=== PATIENT | female | born 1945 | race Caucasian/White ===

== ENCOUNTER → 2021-08-29 10:06 | Outpatient (BNVA) | payer MEDICARE, SELFPAY | PROVIDERS: Referring Provider Student in an Organized Health Care Education/Training Program; Visit Provider Anesthesiology Pain Medicine | DX: G89.29 Other chronic pain (principal); M54.2 Cervicalgia; M47.816 Spondylosis without myelopathy or radiculopathy, lumbar region; M51.16 Intervertebral disc disorders with radiculopathy, lumbar region; M76.01 Gluteal tendinitis, right hip; M76.02 Gluteal tendinitis, left hip; M16.12 Unilateral primary osteoarthritis, left hip; Z87.891 Personal history of nicotine dependence | CPT/HCPCS: 99205 ==

== ENCOUNTER → 2022-03-04 08:20 | Outpatient (BNVA) | payer MEDICARE, MEDICAID, SELFPAY | PROVIDERS: Referring Provider Student in an Organized Health Care Education/Training Program; Visit Provider Orthopaedic Surgery | DX: M67.911 Unspecified disorder of synovium and tendon, right shoulder (principal); Z87.891 Personal history of nicotine dependence | CPT/HCPCS: 20610; 73030; 99203; J0702; J3490 ==

== ENCOUNTER → 2023-04-09 09:12 | Outpatient (BNVA) | payer MEDICARE, MEDICAID, SELFPAY | PROVIDERS: PCP Nurse Practitioner Family; Visit Provider Internal Medicine Cardiovascular Disease | DX: I25.10 Atherosclerotic heart disease of native coronary artery without angina pectoris (principal); I11.0 Hypertensive heart disease with heart failure; I50.9 Heart failure, unspecified; E78.5 Hyperlipidemia, unspecified; Z87.891 Personal history of nicotine dependence | CPT/HCPCS: 36415; 80053; 85025; 93005; 99204 ==

== ENCOUNTER → 2023-11-10 12:12 | Outpatient (BNVA) | payer MEDICARE, MEDICAID, SELFPAY | PROVIDERS: PCP Nurse Practitioner Family; Visit Provider Podiatrist Foot & Ankle Surgery | DX: Q82.8 Other specified congenital malformations of skin (principal) | CPT/HCPCS: 17110; 99203 ==

== ENCOUNTER → 2023-12-22 13:17 | Outpatient (BNVA) | payer MEDICARE, MEDICAID, SELFPAY | PROVIDERS: PCP Nurse Practitioner Family; Visit Provider Podiatrist Foot & Ankle Surgery | DX: Q82.8 Other specified congenital malformations of skin (principal); M76.71 Peroneal tendinitis, right leg | CPT/HCPCS: 99213 ==

== ENCOUNTER → 2024-02-16 09:56 | Outpatient (BNVA) | payer MEDICARE, MEDICAID, SELFPAY | PROVIDERS: PCP Nurse Practitioner Family; Visit Provider Nurse Practitioner Family | DX: I11.0 Hypertensive heart disease with heart failure (principal); I50.9 Heart failure, unspecified; I25.10 Atherosclerotic heart disease of native coronary artery without angina pectoris; Z87.891 Personal history of nicotine dependence | CPT/HCPCS: 99214 ==

== ENCOUNTER → 2024-08-22 12:10 | Outpatient (BNVA) | payer MEDICARE, MEDICAID, SELFPAY | PROVIDERS: PCP Nurse Practitioner Family; Visit Provider Internal Medicine Cardiovascular Disease | DX: R07.9 Chest pain, unspecified (principal); E78.5 Hyperlipidemia, unspecified | CPT/HCPCS: 36415; 80061; 80076; 93005 ==

== ENCOUNTER 2024-09-13 07:30 | Outpatient (CLI) | payer MEDICARE, MEDICAID, SELFPAY ==
--- NOTE | 2024-09-13 07:45 | USCV_ITS ---
PARKER ALMEIDA Age: 79 Gender: F : 1945 Exam Date: 09/13/2024 07:40 Ordering Phys: Kerry Marrero MD ([email or web address]) Technologist: R [place] [facility] [place]: [place]/ pain Risk Factors: Previous Vascular Surgery: RIGHT LEFT BP: 101.0 / 56.00 BP: 101.0/ 54.00 0 0 Waveform Velocity (cm/s) Velocity (cm/s) Waveform Monophasic 48.5 Iliac Prox 77.2 Biphasic Monophasic 70.9 Iliac Mid 69.1 Triphasic Monophasic 57.7 Iliac Distal 87.4 Triphasic Monophasic 183.0 MANAGER INVESTIGATIONS 209.0 Triphasic Monophasic 155.0 SFA Prox 134.0 Triphasic N/A SFA Mid 56.0 Biphasic N/A SFA Dist 63.0 Triphasic Monophasic 50.0 POP 68.0 Triphasic Monophasic 29.0 MEMBERSHIP COORDINATOR 88.0 Triphasic Monophasic 34.0 DPA 43.0 Biphasic 1.2 KARISHMA 1.2 FINDINGS Resting KARISHMA 1.2 bilaterally. No Doppler signal severe flow signals were noted in the mid and distal SFA on the right side. This segment of the artery was found to be stented. Mild to moderate diffuse plaques in the iliac and femoral arteries bilaterally CONCLUSIONS 1. Normal resting ABIs bilaterally 2. Mild to moderate diffuse plaques were noted in the iliac and femoral arteries bilaterally. 3. Features of total occlusion of the mid and distal SFA on the right side(? Stent occlusion) with a possible collateral filling distally. Dr Kerry Marrero MD [facility] (Electronically Signed) Final Date: 17 September 2024 17:07 S
== END 2024-09-13 07:31 | disposition home or self-care (01) ==
LOC: RAD 07:30
PROVIDERS: PCP Nurse Practitioner Family; Visit Provider Internal Medicine Cardiovascular Disease
DX: I70.203 Unspecified atherosclerosis of native arteries of extremities, bilateral legs (principal); I70.201 Unspecified atherosclerosis of native arteries of extremities, right leg
CPT/HCPCS: 93925

== ENCOUNTER 2024-09-29 13:01 | Outpatient (CLI) | payer MEDICARE, SELFPAY ==
[2024-09-29 13:45] LABS: Alanine Aminotransferase 8 U/L (0-33); Albumin Level 4.6 g/dL (3.5-5.2); Alkaline Phosphatase 94 U/L (35-105); Anion Gap 14.7 (5-19); Aspartate Amino Transferase 14 U/L (0-32); Blood Urea Nitrogen 14 mg/dL (8-23); Calcium 9.1 mg/dL (8.5-10.5); Carbon Dioxide 27 mmol/L (22-29); Chloride 103 mmol/L (98-107); Globulin 1.8 g/dL (1.3-4.6); Glucose 104 mg/dL (65-115); Osmolality Calculated 293 mOsm/kg (285-295); Potassium 3.7 mmol/L (3.5-5.1); Sodium 141 mmol/L (136-145); Total Bilirubin 0.3 mg/dL (0.15-1.2); Total Protein 6.4 g/dL (6.6-8.7)
== END 2024-09-29 13:02 | disposition home or self-care (01) ==
PROVIDERS: PCP Nurse Practitioner Family; Visit Provider Internal Medicine Cardiovascular Disease
DX: I77.9 Disorder of arteries and arterioles, unspecified (principal); I25.10 Atherosclerotic heart disease of native coronary artery without angina pectoris; E78.2 Mixed hyperlipidemia
CPT/HCPCS: 36415; 80048; 80076

== ENCOUNTER 2024-10-14 12:28 | Outpatient (CLI) | payer MEDICARE, MEDICAID, SELFPAY ==
--- NOTE | 2024-10-14 13:45 | CTR_ITS ---
PROCEDURE INFORMATION: Exam: CTA Abdominal Aorta and Bilateral Lower Extremities (Run-off) With Contrast Exam date and time: 10/14/2024 1:46 PM Age: 79 years old Clinical indication: Condition or disease; Peripheral vascular disease; Prior surgery; Surgery date: 6+ months; Surgery type: Leflt femoral artery graft, bilateral popliteal artery grafts; Additional info: I73.9 - peripheral vascular disease, unspecified TECHNIQUE: Imaging protocol: Computed tomographic angiography of the of the abdominal aorta, pelvis and bilateral lower extremities with contrast. 3D rendering (Not supervised by radiologist): MIP and/or 3D reconstructed images were created by the technologist. Radiation optimization: All CT scans at this facility use at least one of these dose optimization techniques: automated exposure control; mA and/or kV adjustment per patient size (includes targeted exams where dose is matched to clinical indication); or iterative reconstruction. Contrast material: OMNI 350; Contrast volume: 100 ml; Contrast route: INTRAVENOUS (IV); COMPARISON: No relevant prior studies available. RADIATION DOSE METRICS: Total DLP (mGy-cm): 1385.8 FINDINGS: Aorta: No significant pathology in the visualized aorta. Celiac trunk and mesenteric arteries: Greater than 70% diameter stenosis proximal celiac axis. Otherwise, unremarkable celiac axis. Greater than 70% diameter stenosis proximal superior mesenteric artery. 50-69% diameter stenosis mid superior mesenteric artery. Otherwise, unremarkable SMA. Enlarged inferior mesenteric artery and its branches, likely acting as a collateral pathway. Otherwise, unremarkable RAMILA. Renal arteries: Unremarkable 2 right renal arteries and single left renal artery. Right iliac arteries: No occlusion or hemodynamically significant stenosis. Right femoral/popliteal arteries: Unremarkable right common femoral artery and deep femoral artery. 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 Complete occlusion of the bypass graft from the right common femoral artery to the proximal right popliteal artery. The age of this graft occlusion is uncertain. The right popliteal artery is reconstituted near the adductor hiatus several cm proximal to the graft insertion, but there are multiple greater than 70% diameter stenoses of this proximal right popliteal artery. Distal to the graft insertion the right popliteal artery is patent, but contains multiple 50-69% and greater than 70% diameter stenoses. Right infrapopliteal arteries: There is no significant pathology in the right anterior tibial artery, but the right dorsalis pedis artery is occluded. Greater than 70% diameter stenosis right tibioperoneal trunk. Unremarkable right posterior tibial artery. Several at least 50-69% diameter stenoses in the patent right peroneal artery. Left iliac arteries: 50-69% diameter stenosis proximal left internal iliac artery. Otherwise, unremarkable left iliac arteries. Left femoral/popliteal arteries: Greater than 70% diameter stenosis distal left common femoral artery. Otherwise, unremarkable left common femoral artery. Greater than 70% diameter stenosis proximal left deep femoral artery. Otherwise, unremarkable left deep femoral artery. 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 A bypass graft arises from the distal left common femoral artery, but there is a 50-69% diameter stenosis in its proximal 1 cm. The remainder of this graft is widely patent including its distal insertion into the proximal left popliteal artery. Proximal to this insertion in the left popliteal artery is occluded. The insertion is above the knee. The left popliteal artery distal to the graft insertion is patent, but contains multiple at least 50-69% diameter stenoses. Left infrapopliteal arteries: Greater than 70% diameter stenosis of the proximal left anterior tibial artery. Otherwise, unremarkable left anterior tibial artery, but the left dorsalis pedis artery is occluded. Unremarkable left posterior tibial and peroneal arteries. Veins: The portal vein appears to be normally patent. The splenic vein appears to be normally patent. Main systemic veins do not appear to be collapsed, but additional assessment of that cannot be made due to lack of opacification. There are numerous varicose veins throughout both legs which is likely due to superficial venous insufficiency. Lungs: Small amount of scarring and subsegmental atelectasis in the lung bases. Liver: No mass. Gallbladder and biliary ducts: Multiple small gallstones layering in the gallbladder. Otherwise, unremarkable. Pancreas: Unremarkable. No mass. No ductal dilation. Spleen: Normal. No splenomegaly. Adrenal glands: 1 cm low-density nodule in the right adrenal gland. Otherwise, unremarkable. Kidneys and ureters: A small right renal cyst needs no follow-up. Otherwise, unremarkable. Stomach and bowel: Surgical changes involving the stomach. Otherwise, unremarkable. Appendix: No evidence of appendicitis. Urinary bladder: Unremarkable. No mass. Reproductive: Unremarkable as visualized. Intraperitoneal space: Unremarkable. No free air. No significant fluid collection. Lymph nodes: No lymphadenopathy. Bones/joints: Nothing acute. Soft tissues: Surgical material anterior body wall. Otherwise, unremarkable visualized body wall. Otherwise, unremarkable soft tissues. CT/CT angio abd aorta runof [id number] IMPRESSION: 1. Complete occlusion of the right common femoral to proximal popliteal artery bypass graft. The age of this occlusion is uncertain. 2. Patent left common femoral to proximal left popliteal artery bypass graft, but there is a 50-69% diameter stenosis in the proximal 1 cm of this graft. 3. Occlusions of both entire superficial femoral arteries, occlusion of the left popliteal artery proximal to the insertion of the bypass graft, and occlusion of both dorsalis pedis arteries. These are all believed to be chronic. 4. Multiple additional hemodynamically significant stenoses in the arteries of the abdomen, pelvis, and both legs are detailed above, and are believed to be chronic. 5. Multiple varicose veins throughout both legs are likely due to superficial venous insufficiency. There may be some deep leg venous insufficiency, as well. 6. 1 cm low-density nodule in the right adrenal gland. Recommend contrast-enhanced MRI of this. 7. Additional details as above.
[2024-10-14] MEDS: iohexol 350 mg/mL 500 mL Btl (per mL) IV (14:03)
== END 2024-10-14 12:29 | disposition home or self-care (01) ==
LOC: RAD 12:30
PROVIDERS: PCP Nurse Practitioner Family; Visit Provider Internal Medicine Cardiovascular Disease
DX: I73.9 Peripheral vascular disease, unspecified (principal); Z98.890 Other specified postprocedural states
CPT/HCPCS: 75635

== ENCOUNTER → 2024-11-30 13:48 | Outpatient (BNVA) | payer MEDICARE, MEDICAID, SELFPAY | PROVIDERS: PCP Nurse Practitioner Family; Visit Provider Internal Medicine Cardiovascular Disease | DX: I11.0 Hypertensive heart disease with heart failure (principal); I50.9 Heart failure, unspecified; I77.9 Disorder of arteries and arterioles, unspecified; I65.22 Occlusion and stenosis of left carotid artery; R42 Dizziness and giddiness; E78.2 Mixed hyperlipidemia; I25.10 Atherosclerotic heart disease of native coronary artery without angina pectoris; Z87.891 Personal history of nicotine dependence | CPT/HCPCS: 99214 ==

== ENCOUNTER 2024-12-21 09:02 | Outpatient (CLI) | payer MEDICARE, MEDICAID, SELFPAY ==
--- NOTE | 2024-12-21 09:15 | USCV_ITS ---
PARKER ALMEIDA Age: 79 Gender: F : 1945 Exam Date: 12/21/2024 10:04 Ordering Phys: Kerry Marrero MD ([email or web address]) Technologist: CT Exam Location: [facility] – [place] Indication: Risk Factors: Previous Vascular Surgery: Right Brachial BP: / Left Brachial BP: / Right Left Velocity (cm/s) Spectral Plaque Velocity (cm/s) Spectral Plaque Syst/Diast Broadening Syst/Diast Broadening 78.70/ 14.90 Prox CCA 90.80 / 17.10 78.10/ 17.00 Mid CCA 64.00 / 16.80 58.60/ 14.50 Distal CCA 65.50 / 15.50 74.40/ 17.10 Prox ICA 57.70 / 17.70 96.10/ 21.10 Mid ICA 63.80 / 12.10 65.80/ 22.40 Distal ICA 52.60 / 12.50 76.90 ECA 77.80 1.60 ICA/CCA 1.00 Antegrade Vertebral Antegrade 58.90/ 7.80 cm/s 35.50/ 11.20 cm/s Bi Subclavian Bi 118.8 81.20 0 CONCLUSIONS No prior study for comparison. Right ICA stenosis <50%. Moderate atheromatous plaque right carotid bulb/ICA. Left ICA stenosis <50%. Moderate atheromatous plaque left carotid bulb/ICA. Intimal thickening in the common carotid arteries and internal carotid arteries bilaterally. Normal antegrade Doppler flow noted in the right vertebral artery. Normal antegrade Doppler flow noted in the left vertebral artery. [place] MD (Electronically Signed) Final Date: 21 December 2024 12:27 S
--- NOTE | 2024-12-21 09:15 | USCV_ITS ---
PARKER ALMEIDA Age: 79 Gender: F : 1945 Exam Date: 12/21/2024 09:25 Ordering Phys: Kerry Marrero MD ([email or web address]) Technologist: CT Exam Location: [facility] – [place] Indication: BP: / HR: Rhythm: Sinus Technical Quality: Adequate MEASUREMENTS (Male / Female) Normal Values FINDINGS Left Ventricle Normal left ventricular size, systolic function and wall thickness, with no regional wall motion abnormalities. Left ventricular ejection fraction is estimated at 55 %. Grade I/IV diastolic dysfunction (abnormal relaxation filling pattern), normal to mildly elevated filling pressures. Right Ventricle The right ventricle is normal in size and function. Right Atrium The right atrium is normal in size. Left Atrium Moderately increased left atrial size. Mitral Valve Moderately thickened mitral valve. Moderate mitral annular calcification. No mitral valve stenosis. Moderate mitral valve regurgitation. Aortic Valve Structurally normal aortic valve without significant sclerosis or stenosis. There is no aortic regurgitation. Tricuspid Valve Structurally normal tricuspid valve without significant stenosis or regurgitation. Pulmonic Valve Mild pulmonary valve regurgitation. Pericardium Normal pericardium without effusion. Aorta Normal ascending aorta dimension. IVC The inferior vena cava appears normal. CONCLUSIONS Normal left ventricular size, systolic function and wall thickness, with no regional wall motion abnormalities. Left ventricular ejection fraction is estimated at 55 %. Grade I/IV diastolic dysfunction (abnormal relaxation filling pattern), normal to mildly elevated filling pressures. Moderately thickened mitral valve. Moderate mitral annular calcification. No mitral valve stenosis. Moderate mitral valve regurgitation. There is no pericardial effusion. Right atrial pressure is around5 mm of mercury. Brittney Philippe MD (Electronically Signed) Final Date: 21 December 2024 16:19 S
== END 2024-12-21 09:03 | disposition home or self-care (01) ==
LOC: RAD 09:02
PROVIDERS: PCP Nurse Practitioner Family; Visit Provider Internal Medicine Cardiovascular Disease
DX: R06.09 Other forms of dyspnea (principal); I65.23 Occlusion and stenosis of bilateral carotid arteries; R93.1 Abnormal findings on diagnostic imaging of heart and coronary circulation; I34.81 Nonrheumatic mitral (valve) annulus calcification; I34.0 Nonrheumatic mitral (valve) insufficiency; I37.1 Nonrheumatic pulmonary valve insufficiency
CPT/HCPCS: 93306; 93880

== ENCOUNTER → 2025-02-03 09:56 | Outpatient (BNVA) | payer MEDICARE, MEDICAID, SELFPAY | PROVIDERS: PCP Nurse Practitioner Family; Visit Provider Internal Medicine Cardiovascular Disease | DX: I25.10 Atherosclerotic heart disease of native coronary artery without angina pectoris (principal); E78.2 Mixed hyperlipidemia; I10 Essential (primary) hypertension; I73.9 Peripheral vascular disease, unspecified | CPT/HCPCS: 99214 ==

== ENCOUNTER → 2025-05-24 09:09 | Outpatient (BNVA) | payer MEDICARE, MEDICAID, SELFPAY | PROVIDERS: PCP Nurse Practitioner Family; Visit Provider Podiatrist Foot & Ankle Surgery | DX: Q82.8 Other specified congenital malformations of skin (principal) | CPT/HCPCS: 17110 ==

== ENCOUNTER → 2025-06-06 10:49 | Outpatient (BNVA) | payer MEDICARE, MEDICAID, SELFPAY | PROVIDERS: PCP Nurse Practitioner Family; Visit Provider Nurse Practitioner Family | DX: I77.9 Disorder of arteries and arterioles, unspecified (principal); I73.9 Peripheral vascular disease, unspecified; I25.10 Atherosclerotic heart disease of native coronary artery without angina pectoris; I10 Essential (primary) hypertension; E78.5 Hyperlipidemia, unspecified; D64.9 Anemia, unspecified; Z79.02 Long term (current) use of antithrombotics/antiplatelets; Z95.5 Presence of coronary angioplasty implant and graft; Z87.891 Personal history of nicotine dependence | CPT/HCPCS: 99214 ==

== ENCOUNTER → 2025-06-20 09:38 | Outpatient (BNVA) | payer MEDICARE, MEDICAID, SELFPAY | PROVIDERS: PCP Nurse Practitioner Family; Visit Provider Podiatrist Foot & Ankle Surgery | DX: Q82.8 Other specified congenital malformations of skin (principal); M79.671 Pain in right foot | CPT/HCPCS: 17110 ==

== ENCOUNTER 2025-07-03 10:00 | Oncology outpatient (recurring) (ONCR) | payer MEDICARE, MEDICAID, SELFPAY ==
[2025-06-26 09:33] LABS: Hematocrit 29.1 % (36-47); Hemoglobin 8.70 g/dL (11.27-16.99); Mean Corpuscular HGB Conc 29.9 g/dL (30-55); Mean Corpuscular Hemoglobin 23.3 pg (27-33); Mean Corpuscular Volume 78.0 fl (85-98); Nucleated Red Blood Cells % 0 %; Platelet Count 372 10^3/cmm (157-399); Red Blood Count 3.73 10^6/uL (3.85-5.65); White Blood Count 4.01 10^3/uL (3.29-11.43)
[2025-06-26 10:09] LABS: Alanine Aminotransferase 7 U/L (0-33); Albumin Level 4.4 g/dL (3.5-5.2); Alkaline Phosphatase 93 U/L (35-105); Anion Gap 16.8 (5-19); Aspartate Amino Transferase 12 U/L (0-32); Blood Urea Nitrogen 10 mg/dL (8-23); Calcium 9.3 mg/dL (8.5-10.5); Carbon Dioxide 24 mmol/L (22-29); Chloride 105 mmol/L (98-107); Creatinine Clr Calc Pharmacy 59.7605; Ferritin 10 ng/mL (15-150); Globulin 2.8 g/dL (1.3-4.6); Glucose 101 mg/dL (65-115); Iron 21 ug/dL (37-145); Osmolality Calculated 293 mOsm/kg (285-295); Potassium 3.8 mmol/L (3.5-5.1); Sodium 142 mmol/L (136-145); Thyroid Stimulating Hormone 1.83 uIU/mL (0.27-4.20); Total Iron Binding Capacity 490 mcg/dl; Total Protein 7.2 g/dL (6.6-8.7); Unsaturated Iron Binding 469 ug/dL (112-347)
[2025-06-26 10:26] LABS: Vitamin B12 > 2000 pg/mL (232-1245)
[2025-07-03 10:12] VITALS: BP 123/77; PULSE 76; RESP 18; TEMP 36.4; O2SAT 98
[2025-07-03] MEDS: ferric derisomaltose 1,000 MG in sodium chloride 0.9% (100 ml) 100 ML 330 MG IV (10:40)
[2025-07-03 11:13] VITALS: BP 113/57; PULSE 67; TEMP 36.8; O2SAT 97
== END 2025-07-23 23:59 | disposition home or self-care (01) ==
PROVIDERS: Internal Medicine Medical Oncology; PCP Nurse Practitioner Family; Visit Provider Internal Medicine Cardiovascular Disease
DX: D50.9 Iron deficiency anemia, unspecified; Z79.899 Other long term (current) drug therapy; Z53.9 Procedure and treatment not carried out, unspecified reason
CPT/HCPCS: 36415; 80053; 82607; 82728; 82746; 83540; 83550; 84443; 85025; 96365; 99205; J1437

== ENCOUNTER → 2025-08-04 09:22 | Outpatient (BNVA) | payer MEDICARE, MEDICAID, SELFPAY | PROVIDERS: PCP Nurse Practitioner Family; Visit Provider Internal Medicine Cardiovascular Disease | DX: I25.10 Atherosclerotic heart disease of native coronary artery without angina pectoris (principal); I73.9 Peripheral vascular disease, unspecified; I10 Essential (primary) hypertension; E78.5 Hyperlipidemia, unspecified; K57.92 Diverticulitis of intestine, part unspecified, without perforation or abscess without bleeding; Z87.891 Personal history of nicotine dependence | CPT/HCPCS: 99214 ==

== ENCOUNTER 2025-08-07 09:08 | Oncology outpatient (recurring) (ONCR) | payer MEDICARE, MEDICAID, SELFPAY ==
[2025-08-07 09:43] LABS: Hematocrit 34.6 % (36-47); Hemoglobin 10.40 g/dL (11.27-16.99); Mean Corpuscular HGB Conc 30.1 g/dL (30-55); Mean Corpuscular Hemoglobin 26.4 pg (27-33); Mean Corpuscular Volume 87.8 fl (85-98); Nucleated Red Blood Cells % 0 %; Platelet Count 255 10^3/cmm (157-399); Red Blood Count 3.94 10^6/uL (3.85-5.65); White Blood Count 4.52 10^3/uL (3.29-11.43)
[2025-08-07 09:53] LABS: Alanine Aminotransferase 12 U/L (0-33); Albumin Level 4.0 g/dL (3.5-5.2); Alkaline Phosphatase 78 U/L (35-105); Anion Gap 13.4 (5-19); Aspartate Amino Transferase 20 U/L (0-32); Blood Urea Nitrogen 12 mg/dL (8-23); Calcium 9.1 mg/dL (8.5-10.5); Carbon Dioxide 27 mmol/L (22-29); Chloride 106 mmol/L (98-107); Ferritin 144 ng/mL (15-150); Globulin 2.3 g/dL (1.3-4.6); Glucose 99 mg/dL (65-115); Iron 64 ug/dL (37-145); Osmolality Calculated 296 mOsm/kg (285-295); Potassium 3.4 mmol/L (3.5-5.1); Sodium 143 mmol/L (136-145); Total Iron Binding Capacity 268 mcg/dl; Total Protein 6.3 g/dL (6.6-8.7); Unsaturated Iron Binding 204 ug/dL (112-347)
[2025-08-07 09:57] LABS: Slide Review Slide Review Perform
== END 2025-08-22 23:59 | disposition home or self-care (01) ==
PROVIDERS: Nurse Practitioner Family; PCP Nurse Practitioner Family; Visit Provider Nurse Practitioner
DX: D50.9 Iron deficiency anemia, unspecified (principal); I25.10 Atherosclerotic heart disease of native coronary artery without angina pectoris; K92.2 Gastrointestinal hemorrhage, unspecified; Z79.899 Other long term (current) drug therapy; Z87.891 Personal history of nicotine dependence; Z98.84 Bariatric surgery status
CPT/HCPCS: 36415; 80053; 82728; 83540; 83550; 85025; 99214

== ENCOUNTER 2025-10-09 09:59 | Oncology outpatient (recurring) (ONCR) | payer MEDICARE, MEDICAID, SELFPAY ==
[2025-10-09 10:41] LABS: Hematocrit 30.8 % (36-47); Hemoglobin 9.60 g/dL (11.27-16.99); Mean Corpuscular HGB Conc 31.2 g/dL (30-55); Mean Corpuscular Hemoglobin 30.6 pg (27-33); Mean Corpuscular Volume 98.1 fl (85-98); Nucleated Red Blood Cells % 0 %; Platelet Count 541 10^3/cmm (157-399); Red Blood Count 3.14 10^6/uL (3.85-5.65); White Blood Count 6.73 10^3/uL (3.29-11.43)
[2025-10-09 10:58] LABS: Alanine Aminotransferase 6 U/L (0-33); Albumin Level 3.3 g/dL (3.5-5.2); Alkaline Phosphatase 96 U/L (35-105); Anion Gap 10.7 (5-19); Aspartate Amino Transferase 17 U/L (0-32); Blood Urea Nitrogen 11 mg/dL (8-23); Calcium 8.8 mg/dL (8.5-10.5); Carbon Dioxide 28 mmol/L (22-29); Chloride 107 mmol/L (98-107); Ferritin 245 ng/mL (15-150); Globulin 3.2 g/dL (1.3-4.6); Glucose 100 mg/dL (65-115); Iron 52 ug/dL (37-145); Osmolality Calculated 293 mOsm/kg (285-295); Potassium 3.7 mmol/L (3.5-5.1); Sodium 142 mmol/L (136-145); Total Iron Binding Capacity 268 mcg/dl; Total Protein 6.5 g/dL (6.6-8.7); Unsaturated Iron Binding 216 ug/dL (112-347)
== END 2025-10-22 23:59 | disposition home or self-care (01) ==
PROVIDERS: PCP Nurse Practitioner Family; Visit Provider Nurse Practitioner
DX: D50.9 Iron deficiency anemia, unspecified (principal); I25.10 Atherosclerotic heart disease of native coronary artery without angina pectoris; K92.2 Gastrointestinal hemorrhage, unspecified; Z79.899 Other long term (current) drug therapy; Z87.891 Personal history of nicotine dependence; Z98.84 Bariatric surgery status
CPT/HCPCS: 36415; 80053; 82728; 83540; 83550; 85025; 99214

== ENCOUNTER 2025-11-09 12:15 | Oncology outpatient (recurring) (ONCR) | payer MEDICARE, MEDICAID, SELFPAY ==
--- NOTE | 2025-11-09 12:45 | USCV_ITS ---
Natalie Jamil Age: 80 Gender: F : 1945 Exam Date: 11/09/2025 12:35 Ordering Phys: Amanda Degroot Technologist: Exam [place] [facility] [place]: rt leg swelling post op swelling PROCEDURES: Venous duplex imaging was performed in only the right lower extremity. The following venous structures were evaluated: common femoral vein, profunda vein, proximal portion of the greater saphenous vein, superficial femoral vein, and the popliteal vein. In addition, the posterior tibial and peroneal trunk were evaluated. FINDINGS: Normal 2-D Doppler and augmentation and compressibility throughout the lower extremity venous structures. Additional imaging through the proximal calf veins also reveals no thrombus. Limited evaluation of the greater saphenous vein is patent with no thrombus. There is a large hematomam below rt knee CONCLUSIONS No evidence of right lower extremity DVT. Soft tissue hematoma in lower leg below knee measuring 2.7 x 2.7 x 4.9cm AP x Transverse x CC [place] MD (Electronically Signed) Final Date: 09 November 2025 17:07 S
== END 2025-11-22 23:59 | disposition home or self-care (01) ==
LOC: RAD 12:20 → ONCMED 11-13 10:02
PROVIDERS: PCP Nurse Practitioner Family; Visit Provider Nurse Practitioner
DX: D50.9 Iron deficiency anemia, unspecified (principal); I25.10 Atherosclerotic heart disease of native coronary artery without angina pectoris; K92.2 Gastrointestinal hemorrhage, unspecified; Z79.899 Other long term (current) drug therapy; Z87.891 Personal history of nicotine dependence; Z98.84 Bariatric surgery status; M79.89 Other specified soft tissue disorders; I73.9 Peripheral vascular disease, unspecified
CPT/HCPCS: 93971; 99214